=== PATIENT | female | born 1980 | race Caucasian/White ===

== ENCOUNTER 2017-12-15 09:34 | Observation (INO) ==
[2017-12-15] MEDS ORDERED: *HR* HYDROcodone/Acet 5/325 mg TABLET PO ONE (10:51)
[2017-12-15] MEDS ORDERED: Ondansetron ODT 4 MG TAB.RAPDIS SL ONE (10:51)
[2017-12-15] MEDS ORDERED: Ketorolac 15 MG/ML VIAL IVP ONE (10:51)
[2017-12-15] MEDS ORDERED: Lidocaine 1% 20 ML MDV INFILT ONE (10:52)
--- NOTE | 2017-12-15 10:57 | Emergency Department Note ---
Disposition Clinical Impression: Paronychia, Lymphangitis Disposition: Home, Self-Care Condition: Good Instructions: Paronychia (ED), Lymphangitis (ED) Time of Disposition: 14:05 Extremity Problem HPI - General Chief complaint: ED Wound/Laceration Stated complaint: Right finger infection going up arm Time Seen by Provider: 12/15/17 09:53 Source: patient Mode of arrival: private vehicle Limitations: no limitations Nursing Notes Reviewed: Yes Vital Signs Reviewed: Yes - History of Present Illness Pt Subjective Complaint: extremity pain, extremity swelling Onset (ago): day(s) (4) Consistency: constant Injury Location: right (index finger up to mid upper arm) Pain Scale: 10 Quality: aching, dull Radiation: proximal Improves with: nothing Worsens with: range of motion, palpation, use Associated symptoms: Reports: change in appearance, swelling, redness. Denies: chest pain, shortness of breath, abdominal pain, back pain, bowel/bladder symptoms, fever, myalgias, arthralgias, rash Context: other (diabetic with probable paronychia x 3 days, now with lymphangitis to mid humerus) - Related Data Allergies Allergy/AdvReac Type Severity Reaction Status Date / Time No Known Allergies Allergy Verified 12/15/17 09:39 All systems ED: reviewed and negative except as stated. Review of Systems: As Per HPI Constitutional: Denies: fever, chills, weakness Eyes: Denies: eye pain, eye discharge, vision change Cardiovascular: Denies: chest pain, palpitations Respiratory: Denies: dyspnea Gastrointestinal: Denies: abdominal pain, nausea, vomiting Musculoskeletal: Denies: back pain, neck pain, joint swelling, arthralgia Neurological: Denies: weakness, numbness, paresthesias Hematological/Lymphatic: Reports: lymphadenopathy (right axilla). Denies: easy bleeding, easy bruising Past Medical History - Past Medical History Attestation: Yes The following information was validated with the patient. Source: patient Medical history: Reports: diabetes Psychiatric history: Reports: no psych history - Social History Smoking Status: Never smoker Alcohol use: Reports: none Drug use: Reports: none Physical Exam - General Limitations: no limitations General appearance: alert, in no apparent distress - Head Head exam: atraumatic, normocephalic, normal inspection - Eye Eye exam: Present: normal appearance, PERRL. Absent: scleral icterus, conjunctival injection, periorbital swelling - ENT ENT exam: mucous membranes moist - Neck Neck exam: Present: normal inspection, full ROM, trachea midline - Chest Chest inspection: Present: normal inspection. Absent: symmetric chest wall rise - Respiratory Respiratory exam: Absent: respiratory distress - Cardiovascular Cardiovascular exam: Present: regular rate - Extremities Exam Extremities exam: Present: full ROM, tenderness, normal capillary refill. Absent: joint swelling - Expanded Upper Extremity Exam Shoulder exam: Present: normal inspection, full ROM. Absent: tenderness Arm exam: Present: tenderness, erythema Elbow exam: Present: full ROM, other. Absent: swelling Forearm/Wrist exam: Present: full ROM, tenderness, other. Absent: swelling Hand exam: Present: full ROM, tenderness, swelling (Tender, edematous paronychia , right index finger, radial side), erythema Hand L/R back image: 1 - tender paronychia Neuromotor exam: Normal: wrist extension, thumb opposition, thumb IP flexion, thumb adduction, fingers 2-5 abduction Neurosensory exam: Normal: radial nerve, ulnar nerve, median nerve Hand tendon exam: Normal: flexor digitorum profundus (location), flexor digitorum superficialis (location), extensor tendon (location) Vascular exam: Normal: capillary refill, radial pulse, ulnar pulse - Neurological Exam Neurological exam: Present: alert, oriented X3, CN II-XII intact, normal gait - Psychiatric Psychiatric exam: Present: normal affect, normal mood - Skin Skin exam: Present: warm, dry, intact, normal color - Expanded Skin Exam Type of lesion: Present: abscess (Right index finger paronychia with lymphangitis extending along the dorsal aspect of the right hand and wrist. Moving to the volar aspect of the forearm and upper arm. Erythema extends to the middle of the humerus. ) 1 - Lymphangitis Course Course Narrative: Patient with lymphangitis from a paronychia of the right index finger presents from home for evaluation of increased pain and swelling. She was seen at urgent care yesterday, but did not have the lymphangitis. She was given a prescription for antibiotics which she took yesterday and this morning. She noticed the lymphangitis this morning. It is painful along the volar aspect of the forearm and humeral area. She is afebrile. She is diabetic. The right index finger was digitally blocked with 1% lidocaine. The area was cleaned and the paronychia was incised and drained. A copious amount of pus was evacuated. Patient tolerated this very well. She was given Vanc and Zosyn. Case discussed with Dr. Naranjo. He has had face to face time with the patient and agrees with the assessment. He recommends admission. Hospitalist paged. Patient accepted. Vital Signs Temperature 97.9 F 12/15/17 09:38 Pulse Rate 81 12/15/17 09:38 Respiratory Rate 18 12/15/17 09:38 Blood Pressure 117/76 12/15/17 09:38 O2 Sat by Pulse Oximetry 100 12/15/17 09:38 Temperature 97.9 F 12/15/17 09:46 Pulse Rate 87 12/15/17 12:07 Respiratory Rate 16 12/15/17 12:07 Blood Pressure 100/57 12/15/17 12:07 O2 Sat by Pulse Oximetry 100 12/15/17 09:46 Oxygen Delivery Oxygen Delivery Room Air Extremity Problem, Nontraumati - Medical Records Medical records reviewed: Yes I reviewed the patient's medical records. - Lab Data Lab results reviewed: Yes I reviewed the patient's lab results. Result diagrams: 12/15/17 10:52 12/15/17 10:52 Lab Results 12/15/17 12/15/17 Range/Units 10:52 10:52 WBC 11.1 (4.3-11.1) K/mcL RBC 4.91 (3.82-4.97) M/mcL Hgb 11.1 L (11.5-15.4) g/dL Hct 35.6 (35.3-44.9) % MCV 72.5 L (83.0-100.0) fL MCH 22.6 L (28.0-33.3) pg MCHC 31.2 L (31.6-35.5) g/dL RDW 16.5 H (11.5-14.5) % Plt Count 352 (140-400) K/mcL MPV 10.9 (9.4-12.4) fL Immature Gran % 0.4 (0-4) % Seg Neutrophils % 62.1 % Lymphocytes % 26.6 % Monocytes % 5.5 % Eosinophils % 4.8 % Basophils % 0.6 % Neutrophils # 6.9 (1.6-8.9) K/mcL Lymphocytes # 2.9 (0.6-4.6) K/mcL Monocytes # 0.6 (0.0-1.3) K/mcL Eosinophils # 0.5 (0.0-0.6) K/mcL Basophils # 0.1 (0.0-0.2) K/mcL Sodium 133 L (136-145) mEq/L Potassium 3.7 (3.5-5.1) mEq/L Chloride 103 (98-107) mEq/L Carbon Dioxide 24 (23-29) mEq/L BUN 14 (6-20) mg/dL Creatinine 0.50 L (0.60-1.20) mg/dL Est GFR ( Amer) > 60 (> 60) Est GFR (Non-Af Amer) > 60 (> 60) BUN/Creatinine Ratio 28 H (6-26) Glucose 282 H (70-105) mg/dL Calculated Osmolality 287 (280-300) Calcium 9.0 (8.6-10.3) mg/dL - Radiology Data Radiology results reviewed: Yes I reviewed the patient's radiology results. Finger X-Ray 12/15/17 09:54 IMPRESSION: 1. Mild soft tissue swelling involving the 2nd digit without acute osseous abnormality. D/ / Charly Wolff MD / Charly Wolff MD Interpreting Provider: Charly Wolff MD
[2017-12-15] MEDS ORDERED: Piperacillin/Tazobactam 3.375 GM in 0.9 % Sodium Chloride Mini Bag 100 ML IVPB ONE (10:58)
[2017-12-15] MEDS: Tdap (Boostrix) Vaccine 0.5 ML SYRINGE IM ONE ×2 (11:09→11:12)
[2017-12-15 11:18] LABS: Basophils # 0.1 K/mcL (0.0-0.2); Basophils % 0.6 %; Eosinophils # 0.5 K/mcL (0.0-0.6); Eosinophils % 4.8 %; Hematocrit 35.6 % (35.3-44.9); Hemoglobin 11.1 g/dL (11.5-15.4); Immature Granulocytes % 0.4 % (0-4); Lymphocytes # 2.9 K/mcL (0.6-4.6); Lymphocytes % 26.6 %; Mean Corpuscular HGB Conc 31.2 g/dL (31.6-35.5); Mean Corpuscular Hemoglobin 22.6 pg (28.0-33.3); Mean Corpuscular Volume 72.5 fL (83.0-100.0); Mean Platelet Volume 10.9 fL (9.4-12.4); Monocytes # 0.6 K/mcL (0.0-1.3); Monocytes % 5.5 %; Neutrophils # 6.9 K/mcL (1.6-8.9); Platelet Count 352 K/mcL (140-400); Red Blood Count 4.91 M/mcL (3.82-4.97); Red Cell Distribution Width 16.5 % (11.5-14.5); Segmented Neutrophils % 62.1 %
[2017-12-15 11:39] LABS: BUN/Creatinine Ratio 28 (6-26); Blood Urea Nitrogen 14 mg/dL (6-20); Carbon Dioxide 24 mEq/L (23-29); Chloride 103 mEq/L (98-107); Glucose 282 mg/dL (70-105); Osmolality,Calculated 287 (280-300); Potassium 3.7 mEq/L (3.5-5.1); Sodium 133 mEq/L (136-145); eGFR For Non-African Americans > 60 (> 60)
--- NOTE | 2017-12-15 14:20 | Emergency Department Note ---
Disposition Clinical Impression: Paronychia, Lymphangitis Disposition: Home, Self-Care Condition: Good General Adult HPI - General Chief complaint: ED Wound/Laceration Stated complaint: Right finger infection going up arm Time Seen by Provider: 12/15/17 09:53 Source: patient Mode of arrival: private vehicle Limitations: no limitations - History of Present Illness Pain Scale: 10 - Related Data Home Medications Medication Instructions Recorded Confirmed Fluconazole [Diflucan] 100 mg PO WD 12/15/17 12/15/17 Sertraline [Zoloft] 100 mg PO BID 12/15/17 12/15/17 Vitamin D 1,000 units PO DAILY 12/15/17 12/15/17 lamoTRIgine [Lamotrigine] 200 mg PO BID 12/15/17 12/15/17 metFORMIN [Glucophage] 500 mg PO BIDWM 12/15/17 12/15/17 Allergies Allergy/AdvReac Type Severity Reaction Status Date / Time No Known Allergies Allergy Verified 12/15/17 09:39 Constitutional: Denies: fever, chills, weakness Eyes: Denies: eye pain, eye discharge, vision change Cardiovascular: Denies: chest pain, palpitations Respiratory: Denies: dyspnea Gastrointestinal: Denies: abdominal pain, nausea, vomiting Musculoskeletal: Denies: back pain, neck pain, joint swelling, arthralgia Neurological: Denies: weakness, numbness, paresthesias Hematological/Lymphatic: Reports: lymphadenopathy (right axilla). Denies: easy bleeding, easy bruising Past Medical History - Past Medical History Medical history: Reports: diabetes Psychiatric history: Reports: no psych history - Social History Smoking Status: Never smoker Alcohol use: Reports: none Drug use: Reports: none Physical Exam - General Limitations: no limitations General appearance: alert, in no apparent distress Course Vital Signs Temperature 97.9 F 12/15/17 09:38 Pulse Rate 81 12/15/17 09:38 Respiratory Rate 18 12/15/17 09:38 Blood Pressure 117/76 12/15/17 09:38 O2 Sat by Pulse Oximetry 100 12/15/17 09:38 Temperature 97.9 F 12/15/17 09:46 Pulse Rate 85 12/15/17 15:14 Respiratory Rate 16 12/15/17 15:14 Blood Pressure 105/62 12/15/17 15:14 O2 Sat by Pulse Oximetry 100 12/15/17 15:14 Oxygen Delivery Oxygen Delivery Room Air Medical Decision Making - Lab Data Result diagrams: 12/15/17 10:52 12/15/17 10:52 Lab Results 12/15/17 12/15/17 Range/Units 10:52 10:52 WBC 11.1 (4.3-11.1) K/mcL RBC 4.91 (3.82-4.97) M/mcL Hgb 11.1 L (11.5-15.4) g/dL Hct 35.6 (35.3-44.9) % MCV 72.5 L (83.0-100.0) fL MCH 22.6 L (28.0-33.3) pg MCHC 31.2 L (31.6-35.5) g/dL RDW 16.5 H (11.5-14.5) % Plt Count 352 (140-400) K/mcL MPV 10.9 (9.4-12.4) fL Immature Gran % 0.4 (0-4) % Seg Neutrophils % 62.1 % Lymphocytes % 26.6 % Monocytes % 5.5 % Eosinophils % 4.8 % Basophils % 0.6 % Neutrophils # 6.9 (1.6-8.9) K/mcL Lymphocytes # 2.9 (0.6-4.6) K/mcL Monocytes # 0.6 (0.0-1.3) K/mcL Eosinophils # 0.5 (0.0-0.6) K/mcL Basophils # 0.1 (0.0-0.2) K/mcL Sodium 133 L (136-145) mEq/L Potassium 3.7 (3.5-5.1) mEq/L Chloride 103 (98-107) mEq/L Carbon Dioxide 24 (23-29) mEq/L BUN 14 (6-20) mg/dL Creatinine 0.50 L (0.60-1.20) mg/dL Est GFR ( Amer) > 60 (> 60) Est GFR (Non-Af Amer) > 60 (> 60) BUN/Creatinine Ratio 28 H (6-26) Glucose 282 H (70-105) mg/dL Calculated Osmolality 287 (280-300) Calcium 9.0 (8.6-10.3) mg/dL Attestation Statement - Attestation Attestation: I examined this patient and my medical decision-making was reviewed with the Resident Physician. I agree with the documented findings, disposition and treatment plan as described except to the extent set forth below. Findings consistent with lymphangitis. Given the progressive nature of the swelling as well as redness we will admit for IV antibiotic therapy. Cultures will be sent. Vancomycin as well as Zosyn were initiated. The patient did have drainage of paronychia.
[2017-12-15] MEDS ORDERED: Naloxone 0.4 MG/ML INJ IVP PRN (16:20)
--- NOTE | 2017-12-15 16:44 | Internal Med History&Physical ---
Date of Encounter: 12/15/17 Time of Encounter: 16:36 Internal Medicine - H&P: HPI Chief complaint: swelling, warm and tenderness or the right index finger Admitted From: Home Plans for Post Hospital Care: Home History of present illness: Ms. Marks is a 37 year old female PMH of T2DM on metformin 500mg/PO BID, Borderline personality disorder, Anti-thrombin II deficiency, and frequent vaginal yeast infection who presented to the ED from home due to swelling, tenderness, warm and erythema of her right index finger associated with a collection of pus in the lateral side of the nail of the index finger. Patient report that for about a week she has been having significant swelling and tenderness in the right index finger, but at fist she thought just an ingrown nail, yesterday the patient started having subjective fever and pain 8/ 10 in the right index finger for which she decided to go to an urgent care. She was prescribed antibioitcs but was not able to buy them. Today she woke up with tenderness and erythema of her right index finger up to the fore arm of the same extremity for which she decided to come to the ED. She denies trauma, or insect bite. Past Med Surg Social Fam HX - Past Medical History Medical history: diabetes Additional medical history: antithrombin deficiency Psychiatric history: PTSD, other - Past Surgical History Surgical History: Additional surgical history: borderline personality disorder - Social History Smoking Status: Former smoker Alcohol use: none Drug use: none - Family History Mother Living Status: Still Living Hx Family Endocrine Disorder: Yes (DM) Internal Medicine - H&P: Meds Fluconazole [Diflucan] 100 mg PO WD 12/15/17 [History] Sertraline [Zoloft] 100 mg PO BID 12/15/17 [History] Vitamin D 1,000 units PO DAILY 12/15/17 [History] lamoTRIgine [Lamotrigine] 200 mg PO BID 12/15/17 [History] metFORMIN [Glucophage] 500 mg PO BIDWM 12/15/17 [History] 3 Allergy/AdvReac Type Severity Reaction Status Date / Time No Known Allergies Allergy Verified 12/15/17 09:39 All Systems PM: A 10-system review of systems was performed and is negative for pertinent findings except as documented above in the HPI. - Constitutional Constitutional: fever(s) (Subjective ), no lethargy, no weakness - EENT Eyes: no blurry vision Nose, mouth and throat: no dry mouth, no dysphagia, no sore throat, no throat swelling, no tongue swelling - Cardiovascular Cardiovascular ROS IM: no chest pain, no diaphoresis, no dyspnea, no irregular heart rhythm - Respiratory Respiratory: no cough, no hemoptysis, no wheezing - Gastrointestinal Gastrointestinal: no abdominal pain, no bloating, no change in bowel habits, no constipation, no cramping, no hematemesis - Genitourinary Genitourinary: no breast pain, no dysuria - Musculoskeletal Musculoskeletal ROS IM: no back pain, no limited range of motion, no muscle cramps - Integumentary Integumentary IM: skin ulcer (Paronychia of the right index finger), no rash - Neurological Neurological ROS: no confusion, no lack of coordination, no loss of vision, no tingling, no tremor(s), no vertigo - Psychiatric Psychiatric: no anxiety - Endocrine Endocrine IM: no cold intolerance, no fatigue - Constitutional Vitals: Temp Pulse Resp BP Pulse Ox 97.9 F 85 16 105/62 100 12/15/17 09:46 12/15/17 15:14 12/15/17 15:14 12/15/17 15:14 12/15/17 15:14 Exam: General: Alert and oriented Skin:Normal color, no rash, small erythema of the right index finger. HEENT: EOM, pupils equal, round and reactive. Cardiovascular:Normal S1 & S2, no rubs, murmurs or gallops. No JVD. Pulse regular. Lungs:Normal breath sounds, no wheezes or crackles. Abdomen:Soft, non-tender, no rigidity. Extremities:No deformity, no edema or tenderness, no joint swelling or clubbing. Neurological:Normal cognition and motor skills. Internal Med - H&P Results - Labs CBC & Chem 7: 12/15/17 10:52 12/15/17 10:52 - Assessment and plan (1) Paronychia Current Visit: Yes Status: Acute Assessment and plan: Paronychia of the right index finger associated with mild cellulites of the right fore arm Plan: - Place patient under observation for IV antibiotics with coverage for MRSA and Pseudomonas - Started on Levofloxacin and clindamycin IV - ESR - If worsening index finger inflammation will consider x-ray - Tramadol 40mg Q8HR/PO [place] for Pain control (2) Lymphangitis Current Visit: Yes Status: Acute Assessment and plan: Erythema and tenderness up to the right forearm Plan: - Treated as #1 (3) Borderline personality disorder Current Visit: Yes Status: Chronic Assessment and plan: ON Sertraline and Lamotrigine Plan: - Will continue home medications (4) Diabetes Current Visit: Yes Status: Chronic Assessment and plan: ON metformin 500mg PO BID Plan: - Started on Lovemir 10 units HS - Lisprol 4units AC and sliding scale - Diabetic diet - A1C Qualifiers: Diabetes mellitus type: type 2 Diabetes mellitus complication status: with unspecified complications Qualified Code(s): E11.8 - Type 2 diabetes mellitus with unspecified complications (5) DVT prophylaxis Current Visit: Yes Status: Acute Assessment and plan: Plan: - Heparin 5000 units Q12HR SubQ - Time Spent With Patient Total time spent is greater than 50% in coordination of care (as documented) at patient's floor/unit and/or counseling patient: Greater than 35 minutes - VTE Deep Vein Thrombosis/Pulmonary Embolism Present on Admission: No
[2017-12-15] MEDS: *HR* Heparin 5,000 UNIT/ML VIAL SQ SCH (18:05)
[2017-12-15] MEDS: Levofloxacin 750 MG/150 ML 750 MG/150 ML BAG IVPB SCH (18:06)
[2017-12-15] MEDS: Insulin LISPRO 300 UNITS/3 ML VIAL SQ SCH ×2 (18:06→22:01)
[2017-12-15] MEDS: traMADol 50 MG TABLET PO PRN (18:58)
[2017-12-15] MEDS: Clindamycin 300 MG in D5% in Water 50 ML IVPB SCH (18:58)
[2017-12-15] MEDS: lamoTRIgine 100 MG TABLET PO SCH (20:33)
[2017-12-15] MEDS: Insulin DETEMIR 100 UNIT/ML X5UNITS SQ SCH (22:00)
[2017-12-16] MEDS: Clindamycin 300 MG in D5% in Water 50 ML IVPB SCH ×2 (01:03→08:12)
[2017-12-16] MEDS: *HR* Heparin 5,000 UNIT/ML VIAL SQ SCH ×2 (05:49→17:26)
[2017-12-16 06:06] LABS: Basophils # 0.1 K/mcL (0.0-0.2); Basophils % 0.8 %; Eosinophils # 0.5 K/mcL (0.0-0.6); Eosinophils % 5.8 %; Hematocrit 34.1 % (35.3-44.9); Hemoglobin 10.5 g/dL (11.5-15.4); Immature Granulocytes % 0.2 % (0-4); Lymphocytes # 2.7 K/mcL (0.6-4.6); Lymphocytes % 32.4 %; Mean Corpuscular HGB Conc 30.8 g/dL (31.6-35.5); Mean Corpuscular Hemoglobin 22.5 pg (28.0-33.3); Mean Platelet Volume 11.4 fL (9.4-12.4); Monocytes # 0.5 K/mcL (0.0-1.3); Monocytes % 5.9 %; Neutrophils # 4.5 K/mcL (1.6-8.9); Platelet Count 333 K/mcL (140-400); Red Blood Count 4.67 M/mcL (3.82-4.97); Red Cell Distribution Width 16.7 % (11.5-14.5); Segmented Neutrophils % 54.9 %
[2017-12-16 06:34] LABS: BUN/Creatinine Ratio 27 (6-26); Blood Urea Nitrogen 13 mg/dL (6-20); Calcium 8.3 mg/dL (8.6-10.3); Carbon Dioxide 20 mEq/L (23-29); Chloride 106 mEq/L (98-107); Glucose 175 mg/dL (70-105); Magnesium 1.8 mg/dL (1.6-2.6); Osmolality,Calculated 284 (280-300); Phosphorous 3.6 mg/dL (2.7-4.5); Potassium 3.5 mEq/L (3.5-5.1); Sodium 135 mEq/L (136-145); eGFR For Non-African Americans > 60 (> 60)
[2017-12-16] MEDS: lamoTRIgine 100 MG TABLET PO SCH ×2 (08:12→21:43)
[2017-12-16] MEDS: traMADol 50 MG TABLET PO PRN (08:12)
[2017-12-16] MEDS: Insulin LISPRO 300 UNITS/3 ML VIAL SQ SCH ×5 (08:13→17:27)
[2017-12-16 08:16] LABS: Estimated Average Glucose 295 mg/dl; Hemoglobin A1C 11.9 %
--- NOTE | 2017-12-16 08:51 | Internal Med Progress Note ---
Hospitalist Progress Note - Encounter Date of Encounter: 12/16/17 Time of Encounter: 08:47 - Subjective Interval History: 37 YO Female PMH of DM on Metformin admitted to the hospital yesterday due to paronychia of the right index finger associated with cellulitis of the forearm lymphangitis of the right upper extremity. Today patient seen and evaluated at bedside reports that the pain in the finger has improved but has more swelling, tenderness and the right upper extremity feels more warm. Denies fever, chills , shortness of breath, chest pain, nausea and vomiting, as well as abdominal pain. - Exam Vitals: Temp Pulse Resp BP Pulse Ox 98.5 F 77 15 95/61 96 12/16/17 06:41 12/16/17 06:41 12/16/17 06:41 12/16/17 06:41 12/16/17 06:41 Exam: General: Alert and oriented x3 Skin: Right upper extremity erythema, warmth and tenderness to touch HEENT:EOM, pupils equal, round and reactive. Cardiovascular:Normal S1 & S2, no rubs, murmurs or gallops. No JVD. Pulse regular. Lungs:Normal breath sounds, no wheezes or crackles. Abdomen:Soft, non-tender, no rigidity. Extremities:No deformity, no edema or tenderness, no joint swelling or clubbing. Neurological:Normal cognition and motor skills. - Assessment and Plan (1) Cellulitis Current Visit: Yes Status: Acute Assessment and Plan: Worsening erythema, tenderness and warmth to touch. Plan: - Will change antibiotics from clindamycin to vancomycin 1 g IV daily - Continue levofloxacin 750 mg IV daily - Continue, tramadol 50 mg by mouth every 6 hours for pain control - We will keep patient in the hospital for 24 more hours. For IV antibiotic (2) Paronychia Current Visit: Yes Status: Acute Assessment and Plan: Decrease pain in the index finger, mild erythema no pus reaccumulation seen Plan: - Pain management and antibiotic as problem #1 (3) Lymphangitis Current Visit: Yes Status: Acute Assessment and Plan: Erythema and tenderness up to the right forearm Plan: - Treated as #1 (4) Borderline personality disorder Current Visit: Yes Status: Chronic Assessment and Plan: No flat affect, no suicidal or homicidal ideation. Plan: - Continue home medication (5) Diabetes Current Visit: Yes Status: Chronic Assessment and Plan: Blood sugar well controlled Plan: - Continue Levemir 10 units at bedtime and Lipro 4 units AC and sliding scale - Diabetic diet (6) DVT prophylaxis Current Visit: Yes Status: Chronic Assessment and Plan: Low risk. Plan: - Chemical prophylaxis with heparin 5000 units every 12 hours subcutaneous - Time Spent with Patient Total time spent is greater than 50% in coordination of care (as documented) at patient's floor/unit and/or counseling patient: Greater than 35 minutes Internal Medicine: Result - Labs CBC & Chem 7: 12/16/17 05:23 12/16/17 05:23 Labs: Short CBC 12/16/17 Range/Units 05:23 WBC 8.3 (4.3-11.1) K/mcL Hgb 10.5 L (11.5-15.4) g/dL Hct 34.1 L (35.3-44.9) % Plt Count 333 (140-400) K/mcL Neutrophils # 4.5 (1.6-8.9) K/mcL BMP 12/16/17 05:23 Sodium 135 L Potassium 3.5 Chloride 106 Carbon Dioxide 20 L BUN 13 Creatinine 0.48 L Glucose 175 H Calcium 8.3 L - VTE Deep Vein Thrombosis/Pulmonary Embolism Present on Admission: No Consult Discharge Plan - Plan Referrals: [facility] [Primary Care Provider] - Cassia Thompson MD [Family Provider] - (1) Cellulitis Qualifiers: Site of cellulitis: extremity Site of cellulitis of extremity: upper extremity Laterality: right Qualified Code(s): L03.113 - Cellulitis of right upper limb (5) Diabetes Qualifiers: Diabetes mellitus type: type 2 Diabetes mellitus complication status: with unspecified complications Qualified Code(s): E11.8 - Type 2 diabetes mellitus with unspecified complications
[2017-12-16] MEDS ORDERED: Aminoglycoside Consult 1 EACH MC ONE (08:55)
[2017-12-16] MEDS ORDERED: Dextrose Gel 15 GM/37.5 ML TUBE PO PRN ×2 (09:04)
[2017-12-16] MEDS ORDERED: D5% in Water 1,000 ML IVC PRN (09:04)
[2017-12-16] MEDS ORDERED: *HR* Dextrose 50 % in Water (Syg) 50 ML SYRINGE IVP PRN (09:04)
[2017-12-16] MEDS ORDERED: Vancomycin (wt based) 1,000 MG VIAL IV SCH (10:00)
[2017-12-16] MEDS: Levofloxacin 750 MG/150 ML 750 MG/150 ML BAG IVPB SCH (17:27)
[2017-12-16] MEDS: Insulin DETEMIR 100 UNIT/ML X5UNITS SQ SCH (21:43)
[2017-12-17] MEDS: *HR* Heparin 5,000 UNIT/ML VIAL SQ SCH (05:09)
[2017-12-17 07:27] LABS: Hematocrit 33.2 % (35.3-44.9); Mean Corpuscular HGB Conc 30.1 g/dL (31.6-35.5); Mean Corpuscular Hemoglobin 21.8 pg (28.0-33.3); Mean Corpuscular Volume 72.3 fL (83.0-100.0); Mean Platelet Volume 10.9 fL (9.4-12.4); Platelet Count 323 K/mcL (140-400); Red Blood Count 4.59 M/mcL (3.82-4.97)
[2017-12-17 07:45] VITALS: BP 106/69
[2017-12-17 07:47] LABS: BUN/Creatinine Ratio 21 (6-26); Blood Urea Nitrogen 10 mg/dL (6-20); Calcium 8.6 mg/dL (8.6-10.3); Carbon Dioxide 21 mEq/L (23-29); Chloride 105 mEq/L (98-107); Glucose 212 mg/dL (70-105); Osmolality,Calculated 281 (280-300); Potassium 3.7 mEq/L (3.5-5.1); Sodium 133 mEq/L (136-145); eGFR For Non-African Americans > 60 (> 60)
--- NOTE | 2017-12-17 07:54 | Discharge Summary ---
- NOTES TO OUTPATIENT PROVIDER Notes to Outpatient Provider: Blood sugar control Orders not resulted at time of discharge: Pending orders 12/17/17 07:10 BMP [Basic Metabolic Panel] Routine Date of Encounter: 12/17/17 Time of Encounter: 07:47 - Discharge Diagnosis (1) Cellulitis Priority: Primary Status: Acute Qualifiers: Site of cellulitis: extremity Site of cellulitis of extremity: upper extremity Laterality: right Qualified Code(s): L03.113 - Cellulitis of right upper limb (2) Paronychia Priority: Secondary Status: Resolved (3) Lymphangitis Priority: Secondary Status: Resolved (4) Borderline personality disorder Priority: Secondary Status: Chronic (5) Diabetes Priority: Secondary Status: Chronic Qualifiers: Diabetes mellitus type: type 2 Diabetes mellitus complication status: with unspecified complications Qualified Code(s): E11.8 - Type 2 diabetes mellitus with unspecified complications (6) DVT prophylaxis Priority: Secondary Status: Chronic Hospital course: Ms. Marks is a 37 year old female past medical history diabetes type 2 on metformin and borderline personality disorder. Patient presented to the emergency room complaining of a small collection of pus in the lateral side of the nail of the right index finger associated with tenderness, erythema on the fourth right upper extremity and subjective fever. The collection was drained and patient was subsequently requiring IV antibiotics. Today the inflammation and erythema has resolved and patient is ready to be discharged. Advised to continue clindamycin for 5 more days. Discharge discussed with: patient - Time Spent with Patient Total time spent providing and/or coordinating discharge services: Greater than 30 minutes - Discharge Medications Prescriptions: Clindamycin HCl [Cleocin HCl] 300 mg PO Q12HR 5 Days #10 capsule Home Medications: Fluconazole [Diflucan] 100 mg PO WD 12/15/17 [History] Sertraline [Zoloft] 100 mg PO BID 12/15/17 [History] Vitamin D 1,000 units PO DAILY 12/15/17 [History] lamoTRIgine [Lamotrigine] 200 mg PO BID 12/15/17 [History] metFORMIN [Glucophage] 500 mg PO BIDWM 12/15/17 [History] Clindamycin HCl [Cleocin HCl] 300 mg PO Q12HR 5 Days #10 capsule 12/17/17 [Rx] Allergies/Adverse Reactions: 3 Allergy/AdvReac Type Severity Reaction Status Date / Time No Known Allergies Allergy Verified 12/15/17 09:39 Date of admission: 12/15/17 15:00 Primary care physician: PCP [place] - Constitutional Vitals: Temp Pulse Resp BP Pulse Ox 98.1 F 70 16 106/69 98 12/17/17 07:44 12/17/17 07:44 12/17/17 07:44 12/17/17 07:44 12/17/17 07:44 Exam: General: Alert and oriented Skin:Normal color, no rash, no lesions. HEENT:EOM, pupils equal, round and reactive. Cardiovascular:Normal S1 & S2, no rubs, murmurs or gallops. No JVD. Pulse regular. Lungs:Normal breath sounds, no wheezes or crackles. Abdomen:Soft, non-tender, no rigidity. Extremities: no erythema or tenderness in the upper extr b/l. Neurological:Normal cognition and motor skills. Pulses:Carotid and radial pulses normal +2. Rest of the physical exam is non contributory - Patient Status Disposition: Home, Self-Care Condition: Good Functional capacity at discharge: independent ambulation Overall status at discharge: patient is back to baseline - Discharge Instructions Follow Up With: Cassia Thompson MD [Family Provider] - [place],PCP [Primary Care Provider] - - Diet and Activity Activity: increase activity as tolerated Diet: advance to your usual diet, diabetic diet - VTE Deep Vein Thrombosis/Pulmonary Embolism Present on Admission: No
[2017-12-17] MEDS: Insulin LISPRO 300 UNITS/3 ML VIAL SQ SCH ×2 (08:05→08:06)
[2017-12-17] MEDS: lamoTRIgine 100 MG TABLET PO SCH (08:05)
== END 2017-12-17 08:56 | disposition home or self-care (01) ==
LOC: EMEROOARM 09:34 → 3BNU 09:34 → SUATTDRO 15:00 → 3BNU 15:49
PROVIDERS: ADMIT Internal Medicine; ATTEND Internal Medicine